=== PATIENT | male | born 1930 | race Caucasian/White ===

== ENCOUNTER → 2016-06-25 | Outpatient (CLI) | payer OTHER ==
[~2016-06-25] VITALS: Ht 177.8 cm; Wt 88.8 kg
[~2016-06-25] MED LIST: ALEVE220 MG PO; AMBIEN 5 MG TABL5 M1 PO; ASPIR 8181 MG PO; FLUVASTATIN SOD40 MG PO; NEXIUM40 MG PO; PATANOL5 ML OPHTHALMIC; PROSCAR 5MG TABL5 M1 PO; ROXICODONE5 MG PO; SENNA PO; SIMVASTATIN40 MG PO
--- NOTE | ~2016-06-25 | HPC ---
[facility] [address] [place] [address] PAIN MANAGEMENT CONSULTATION Name: GISELL GUNN [id number] Admission: 06/25/16 Attend Phys: Constantine Moss DO Discharge: Date of : 30 Report #: [id number] THIS REPORT FOR: //name// CC: Koby Moss HISTORY OF PRESENT ILLNESS: The patient is a pleasant 85-year-old gentleman who was seen about a year and a half ago in January [address] Najma Moss, had 3 lumbar epidural injections with improvement of right-sided radicular pain. He returns to the pain clinic today with a little different and somewhat unique complaint. He is noticing pain in the contralateral, i.e., the left posterior upper leg radiating down into the knee. He denies antecedent trauma or overuse. He states pain goes into the calf, it started in May. He had prior been having some vein injections for varicosities. This treatment was done beginning of the year. It seems to be unrelated, but it was temporally related. He notes it is an intermittent aching sensation and he rates up to 7-8 on a 0-10 visual analog scale. Seems to be exacerbated with walking, does get worse as the day goes on. PHYSICAL EXAMINATION: GENERAL: Shows an 85-year-old gentleman, BMI is 20.1 kilograms per meter squared. Has somewhat of an endomorphic build. VITAL SIGNS: Blood pressure 132/72, pulse 70, respirations 18. EXTREMITIES: Rises from chair using armrests, antalgic gait favoring the left leg. Positive straight leg raise on the left. Tucker test is negative, resistance to piriformis muscle. Lower leg rotation is unremarkable. No trigger points are noted. DIAGNOSTIC STUDIES: I reviewed an MRI of the lumbar spine obtained 06/02/2016 (compared to a prior study from 01/08/2014), notes resolution of the previously extruded disk material of L4-L5 on the right, seems to be somewhat improved. There is an L5-S1 minimal disk space narrowing associated with some facet arthropathy and mild ligamentum flavum thickening, really no dramatic compromise is noted here. ASSESSMENT: Symptomatic lumbar radiculopathy by clinical history, perhaps a component of vascular claudication, myofascial pain component. RECOMMENDATIONS: I had a long discussion with the patient today about therapeutic options. Ultimately, we elected to proceed with a single epidural injection under fluoroscopy today, left midline at L5-S1. We will have the patient follow up in 2 weeks for reevaluation. If symptoms continue, we may have him referred to Vascular Surgery for concern for more of a vascular claudication type symptom, though again one would typically think that he would see more distal pain rather than proximal. He may benefit from an EMG (? ) to see if there is perhaps nerve entrapment outside of the central spinal canal. [address] [address] PAIN MANAGEMENT CONSULTATION Name: LUIS AGISELL NAJMA Room #: REG [facility] Caba#: [id number] Admission: 06/25/16 Attend Phys: Constantine Moss DO Discharge: Date of : 30 Report #: [id number] This does present somewhat of a diagnostic conundrum, but we will begin with injection today and follow up in 2 weeks to evaluate efficacy. PROCEDURE: Lumbar epidural injection under fluoroscopy. PROCEDURE NOTE: After both written and informed consent to include risk of spinal cord damage, increased pain, weakness and dural puncture, the patient was taken to the fluoroscopy suite, placed in the prone position. After sterile prep and drape, a skin wheal with lidocaine was raised. A 22-gauge epidural Tuohy needle was inserted in the midline at L5-S1 with good loss to resistance. Negative aspiration for cerebrospinal fluid or blood was noted. Then 1 mL of Omnipaque under biplanar fluoroscopy showed good spread within the epidural space. This was followed with 80 mg of triamcinolone plus 1 mL of 1.5% preservative-free Xylocaine, 0.5 mL Xylocaine was then injected to flush the needle; it was removed. The patient was monitored for an appropriate period of time and discharged in good and stable condition. <ELECTRONICALLY SIGNED> By: Constantine Moss DO 06/28/16 [id number] [id number] Constantine Moss DO /nt
[2016-06-25 10:35] VITALS: BP 137/72
== END | disposition home or self-care (01) ==
LOC: PAIN 06:13
DX: M54.16 Radiculopathy, lumbar region (principal); R51 Headache; I73.9 Peripheral vascular disease, unspecified; Z87.891 Personal history of nicotine dependence

== ENCOUNTER → 2016-07-09 | Outpatient (CLI) | payer OTHER ==
[~2016-07-09] VITALS: Ht 177.8 cm; Wt 84.1 kg
--- NOTE | ~2016-07-09 | HPC ---
[facility] [place] [address] PAIN MANAGEMENT CONSULTATION Name: LUIS AGISELL NAJMA Room #: REG [facility] Marisol.#: [id number] Admission: 07/09/16 Attend Phys: Constantine Moss DO Discharge: Date of : 30 Report #: [id number] THIS REPORT FOR: //name// CC: Koby Moss PROCEDURE: Lumbar epidural injection under fluoroscopy. INDICATION: The patient is an 85-year-old gentleman, prior seen in pain clinic 06/25/2016 essentially seen as a "re" consult having prior been seen in 2013. The patient was diagnosed with symptomatic lumbar radiculopathy, component of vascular and neurogenic claudication. It was given a single epidural injection at that time. He returns to the pain clinic today noting that the injection gave 85-90% relief. Actually, he is having minimal pain with walking; however, still has a component of neurogenic claudication walking greater than 30 yards, he has pain in the left lateral L4 distribution. He uses a cane in his right hand. PHYSICAL EXAMINATION: Shows 85-year-old gentleman, subjective pain score is low 1-2/10 however, when he rises and starts to walk does have a radicular pain in the right leg that causes him to abort activities after about 30 steps due to increasing pain and weakness. Physical exam shows positive straight leg raise on the left with moderately antalgic gait. Vital signs are stable. Has a slight decreased left hip flexion and lower extremity extension strength, though not nearly enough strength to account for the subjective weakness and pain that he experiences. Does have peripheral pulses that are faint yet palpable, so I think the vascular claudication compnonet of pain might be fairly nominal. ASSESSMENT: Symptomatic lumbar radiculopathy, possible component of vascular claudication and myofascial pain by history. RECOMMENDATIONS: 1. Repeat epidural injection under fluoroscopy today. 2. Continue with cane to prevent falling, uses it for balance and proprioception. 3. Continue Naprosyn p.r.n. 4. Had followup about 3 weeks for reevaluation. If symptoms continue, we may refer for EMG and/or more vascular studies to make sure we are not overlooking the other treatable options. ASSESSMENT: Symptomatic lumbar radiculopathy. PROCEDURE NOTE: Lumbar epidural injection under fluoroscopy. PROCEDURE NOTE: After both written and informed consent to include risk of spinal cord damage, increased pain, weakness and dural puncture, the patient was taken to the fluoroscopy suite, placed in the prone position. After sterile [address] [address] PAIN MANAGEMENT CONSULTATION Name: GISELL GUNN Room #: REG [facility].#: [id number] Admission: 07/09/16 Attend Phys: Constantine Moss DO Discharge: Date of : 30 Report #: [id number] prep and drape, a skin wheal with lidocaine was raised. A 22-gauge epidural Tuohy needle was inserted in the midline at L5-S1 with good loss to resistance. Negative aspiration for cerebrospinal fluid or blood was noted. Then 1 mL of Omnipaque under biplanar fluoroscopy showed good spread within the epidural space. This was followed with 80 mg of triamcinolone plus 1 mL of 1.5% preservative-free Xylocaine, 0.5 mL Xylocaine was then injected to flush the needle; it was removed. The patient was monitored for an appropriate period of time and discharged in good and stable condition. <ELECTRONICALLY SIGNED> By: Constantine Moss DO 07/12/16 1130 [id number] Constantine Moss DO /nt
[2016-07-09 10:14] VITALS: BP 118/59
== END ==
LOC: PAIN 07:01
DX: M54.16 Radiculopathy, lumbar region (principal); I10 Essential (primary) hypertension; Z87.891 Personal history of nicotine dependence